=== PATIENT | male | born 1975 ===

== ENCOUNTER 2019-05-17 18:46 | Emergency (ER) | payer BC ==
[2019-05-17] MEDS ORDERED: Loperamide 2 MG Tab PO ONE (19:17)
[2019-05-17 19:20] LABS: CHLORIDE,CL 103 mmol/L (98-107); SODIUM,NA 140 mmol/L (136-145)
--- NOTE | 2019-05-17 19:23 | EDM.PDOC ---
ED HPI GENERAL MEDICAL PROBLEM - General Chief Complaint: General Stated Complaint: diarrhea Time Seen by Provider: 05/17/19 19:09 Source of Information: Reports: Patient History Limitations: Reports: No Limitations - History of Present Illness INITIAL COMMENTS - FREE TEXT/NARRATIVE: Patient here due to diarrhea. Sent here by Roberto Carlos. Reports that he gets loose stools like this when using his Metformin. Admits to forgetting to take the medication frequently, and says that when he restarts it the loose stools return. No change in the loose stools. Per usual pattern. Non-bloody. No emesis/nausea/fevers. Reports no other changes. Has been told he has elevated cholesterol in past too and is supposed to be on medication. Forgets to take that too. - Related Data Allergies Allergy/AdvReac Type Severity Reaction Status Date / Time No Known Allergies Allergy Verified 05/17/19 18:54 Home Meds: Home Meds metFORMIN HCl [Metformin HCl ER] 2 tab PO BID 05/17/19 [History] Past Medical History Cardiovascular History: Reports: High Cholesterol, Other (See Below) ( borderline elevated BPs in past) Endocrine/Metabolic History: Reports: Diabetes, Type II Social & Family History - Tobacco Use Smoking Status *Q: Never Smoker - Caffeine Use Caffeine Use: Reports: Coffee - Alcohol Use Alcohol Use History: Yes Alcohol Use Frequency: Socially - Recreational Drug Use Recreational Drug Use: No Drug Use in Last 12 Months: No ED ROS GENERAL - Review of Systems Review Of Systems: See Below Constitutional: Reports: No Symptoms. Denies: Fever, Chills, Decreased Appetite , Weight Loss HEENT: Reports: No Symptoms Respiratory: Reports: No Symptoms Cardiovascular: Reports: No Symptoms GI/Abdominal: Reports: Diarrhea. Denies: Abdominal Pain, Black Stool, Bloody Stool, Constipation, Nausea, Vomiting : Reports: No Symptoms Musculoskeletal: Reports: No Symptoms Skin: Reports: No Symptoms Neurological: Reports: No Symptoms Psychiatric: Reports: No Symptoms ED EXAM, GENERAL - Physical Exam Exam: See Below Exam Limited By: No Limitations General Appearance: Alert, WD/WN, No Apparent Distress Eye Exam: Bilateral Eye: EOMI, PERRL Ears: Hearing Grossly Normal Nose: No: Nasal Deformity, Nasal Swelling, Nasal Drainage Throat/Mouth: Normal Lips, Normal Voice, No Airway Compromise Head: Atraumatic, Normocephalic Neck: Normal Inspection, Supple, Non-Tender, Full Range of Motion Respiratory/Chest: No Respiratory Distress, Lungs Clear, Normal Breath Sounds, No Accessory Muscle Use Cardiovascular: Regular Rate, Rhythm, No Murmur GI/Abdominal: Normal Bowel Sounds, Soft, Non-Tender, No Distention (Male) Exam: Deferred Rectal (Males) Exam: Deferred Back Exam: No: CVA Tenderness (L), CVA Tenderness (R), Muscle Spasm Extremities: Normal Inspection, Normal Capillary Refill Neurological: Alert, Oriented, Normal Cognition, Normal Gait, No Motor/Sensory Deficits Psychiatric: Normal Affect, Normal Mood Skin Exam: Warm, Dry, Intact, Normal Color Course - Orders/Labs/Meds Orders: Active Orders 24 hr Category Date Time Status CMP [COMPREHENSIVE METABOLIC PN,CMP] [CHEM] Stat Lab 05/17/19 19:00 Received Labs: Laboratory Tests 05/17/19 Range/Units 19:00 WBC 4.6 (4.0-10.2) K/uL RBC 5.32 (4.33-5.41) M/uL Hgb 15.6 (13.1-16.8) g/dL Hct 47.4 (39.0-49.0) % MCV 89.1 (84.0-98.0) fL MCH 29.3 (28.2-33.3) pg MCHC 32.9 (31.7-36.0) g/dL RDW 12.9 (11.2-14.1) % Plt Count 190 (150-350) K/uL Neut % (Auto) 41.4 L (45.0-80.0) % Lymph % (Auto) 44.4 (10.0-50.0) % Coles % (Auto) 10.3 (2.0-14.0) % Eos % (Auto) 3.5 (0.0-5.0) % Baso % (Auto) 0.4 (0.0-2.0) % Neut # (Auto) 1.88 (1.40-7.00) K/uL Lymph # (Auto) 2.02 (0.50-3.50) K/uL Coles # (Auto) 0.47 (0.00-1.00) K/uL Eos # (Auto) 0.16 (0.00-0.50) K/uL Baso # (Auto) 0.02 (0.00-0.20) K/uL - Re-Assessments/Exams Free Text/Narrative Re-Assessment/Exam: Vital signs stable. BP somewhat elevated. Patient blames it on coffee. Recommended to have serial BPs at work and follow up with record of BPs with primary provider in 1-2 weeks if BPs elevated. Blood sugar 250. Discussed diarrhea as common side effect of Metformin. Will give Imodium dose. 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 Recommended to follow up with primary provider to review medication next week. May need dose change or medication change. No work today/ tomorrow. Bobcat note given to patient. Departure - Departure Time of Disposition: 19:23 Disposition: Home, Self-Care 01 Condition: Good Clinical Impression: Diabetes mellitus, type 2, Hyperglycemia Adverse effect of metformin Qualifiers: Encounter type: initial encounter Qualified Code(s): T38.3X5A - Adverse effect of insulin and oral hypoglycemic [antidiabetic] drugs, initial encounter Diarrhea Qualifiers: Diarrhea type: unspecified type Qualified Code(s): R19.7 - Diarrhea, unspecified - Discharge Information *PRESCRIPTION DRUG MONITORING PROGRAM REVIEWED*: Not Applicable *COPY OF PRESCRIPTION DRUG MONITORING REPORT IN PATIENT JUICE: Not Applicable Referrals: Jr Ramey MD [Primary Care Provider] - Additional Instructions: Home, rest. OK to take 1-2 tablets of Imodium tomorrow morning if loose stools continue. As discussed, diarrhea is a frequent side effect of Metformin. Talk to your regular doctor about this next week. You may need to adjust your dose, or get switched to another medication. Have your blood pressure rechecked at work once a shift for a week/keep track. If it continues to be elevated follow up with your doctor and discuss if you need to be placed on medicine to lower your blood pressure. Start learning to check your blood sugars. If you don't like to poke your finger, you may instead prefer something like the Freestyle monitor. This too is something you can speak about with your provider. Your blood sugar was 250 tonight. That is too high. Follow up otherwise as needed. - My Orders Last 24 Hours: My Active Orders 05/17/19 19:00 CMP [COMPREHENSIVE METABOLIC PN,CMP] [CHEM] Stat - Assessment/Plan Last 24 Hours: My Active Orders 05/17/19 19:00 CMP [COMPREHENSIVE METABOLIC PN,CMP] [CHEM] Stat
== END 2019-05-17 19:45 | disposition home or self-care (01) ==
LOC: LL.ED 18:46
DX: R19.7 Diarrhea, unspecified (principal); T38.3X5A Adverse effect of insulin and oral hypoglycemic [antidiabetic] drugs, initial encounter; E11.65 Type 2 diabetes mellitus with hyperglycemia; Z79.84 Long term (current) use of oral hypoglycemic drugs
CPT/HCPCS: 36415; 80053; 85025; 99284